=== PATIENT | male | born 1980 | race Two or more races ===

== ENCOUNTER 2018-05-03 19:35 | Emergency (ER) | payer MEDICAID ==
[~2018-05-03] VITALS: Ht 180.3 cm; Wt 111.1 kg
[2018-05-03 19:48] VITALS: BP 137/99
[2018-05-03] MEDS ORDERED: cefTRIAXone SOD 1,000 MG VL IM ONE (21:15)
[2018-05-03] MEDS ORDERED: DEXAMETHASONE SOD PHOS 10MG/1ML VIAL INJ IM ONE (21:15)
[2018-05-03] MEDS ORDERED: EPINEPHrine HCL 1 MG/1 ML AMP IM ONE (21:30)
== END 2018-05-03 21:55 | disposition home or self-care (01) ==
LOC: ER 19:51
DX: S00.86XA Insect bite (nonvenomous) of other part of head, initial encounter (principal); E11.9 Type 2 diabetes mellitus without complications; Z91.013 Allergy to seafood; W57.XXXA Bitten or stung by nonvenomous insect and other nonvenomous arthropods, initial encounter; Y93.89 Activity, other specified; Y92.098 Other place in other non-institutional residence as the place of occurrence of the external cause; Y99.8 Other external cause status
CPT/HCPCS: 96372; 99283; J0171; J0696; J1100

== ENCOUNTER 2019-08-10 08:40 | Emergency (ER) | payer MEDICAID ==
[~2019-08-10] VITALS: Ht 180.3 cm; Wt 111.1 kg
[2019-08-10 09:19] VITALS: BP 134/88
[2019-08-10] MEDS ORDERED: SODIUM CHLORIDE 0.9% 1,000 ML IV ONE (09:45)
[2019-08-10] MEDS ORDERED: KETOROLAC TROMETH 30 MG/ML 1ML VIAL IV ONE (09:45)
[2019-08-10 09:51] LABS: Urine Bacteria FEW /hpf (None Seen); Urine Blood 1+ /uL (Negative); Urine Specific Gravity 1.029 (1.001-1.035); Urine WBC 190 /hpf (0 - 3); Urine WBC Clumps PRESENT /hpf (None Seen)
[2019-08-10] MEDS ORDERED: cefTRIAXone 1GM/50ML D5W 50 ML IV ONE (10:15)
[2019-08-10] MEDS ORDERED: cefTRIAXone SOD 1,000 MG VL ONE (10:17)
[2019-08-10 10:21] LABS: Basophils # (auto) 0.1 10 ^3/uL (0-0.2); Basophils % (auto) 0.6 % (0.0-2.0); Eosinophils # (auto) 0.1 10 ^3/uL (0-0.8); Eosinophils % (auto) 1.2 % (0.0-7.0); Hematocrit 47.8 % (41.0-53.0); Hemoglobin 15.8 g/dL (13.5-17.5); Lymphocytes # (auto) 2.3 10 ^3/uL (0.4-5.4); Lymphocytes % (auto) 23.3 % (10.0-50.0); Mean Corpuscular Hemoglobin 29.2 pg (28.0-32.0); Mean Corpuscular Volume 88.4 fL (80.0-100.0); Monocytes # (auto) 0.6 10 ^3/uL (0-1.3); Monocytes % (auto) 5.8 % (0.0-12.0); Neutrophils # (auto) 6.9 10 ^3/uL (1.6-8.6); Neutrophils % (auto) 69.1 % (37.0-80.0); Platelet Count (auto) 261 10^3/uL (140-450); Red Blood Cells 5.41 10^6/uL (4.5-5.90); Red Cell Distribution Width 14.1 % (11.8-14.3)
[2019-08-10 10:36] LABS: Calcium 9.3 mg/dL (8.5-10.1); Potassium 3.9 mmol/L (3.5-5.1)
== END 2019-08-10 11:29 | disposition home or self-care (01) ==
LOC: ER 08:40
DX: N39.0 Urinary tract infection, site not specified (principal); M48.061 Spinal stenosis, lumbar region without neurogenic claudication; E11.9 Type 2 diabetes mellitus without complications; Z91.013 Allergy to seafood
CPT/HCPCS: 36415; 74176; 80048; 81001; 85025; 96365; 96375; 99284; J0696; J1885; J7030

== ENCOUNTER 2020-12-29 08:21 | Emergency (ER) | payer MEDICAID ==
[~2020-12-29] VITALS: Ht 180.3 cm; Wt 108.9 kg
[2020-12-29 12:53] VITALS: BP 122/77
== END 2020-12-29 13:23 | disposition home or self-care (01) ==
LOC: ER 08:21
DX: B30.9 Viral conjunctivitis, unspecified (principal); E11.9 Type 2 diabetes mellitus without complications; Z91.018 Allergy to other foods; Z91.013 Allergy to seafood

== ENCOUNTER 2021-04-27 08:49 | Emergency (ER) | payer MEDICAID ==
[~2021-04-27] VITALS: Ht 180.3 cm; Wt 108.9 kg
[2021-04-27 09:32] VITALS: BP 125/87
[2021-04-27] MEDS ORDERED: POLYSOL15 OP (09:49)
== END 2021-04-27 10:11 | disposition home or self-care (01) ==
LOC: ER 08:49
DX: H10.89 Other conjunctivitis (principal); B96.89 Other specified bacterial agents as the cause of diseases classified elsewhere; E11.9 Type 2 diabetes mellitus without complications; Z79.899 Other long term (current) drug therapy; Z91.013 Allergy to seafood; Z91.018 Allergy to other foods

== ENCOUNTER 2021-07-22 17:58 | Inpatient (IN) | payer MEDICAID ==
[~2021-07-22] VITALS: Ht 180.3 cm; Wt 115.3 kg
[~2021-07-22 17:58] MED LIST: POLYSOL15 OP
[2021-07-22 18:51] LABS: Basophils # (auto) 0 10 ^3/uL (0-0.2); Basophils % (auto) 0.4 % (0.0-2.0); Eosinophils # (auto) 0.1 10 ^3/uL (0-0.8); Eosinophils % (auto) 1.1 % (0.0-7.0); Hematocrit 41.4 % (41.0-53.0); Hemoglobin 14.2 g/dL (13.5-17.5); Lymphocytes # (auto) 0.4 10 ^3/uL (0.4-5.4); Lymphocytes % (auto) 4.5 % (10.0-50.0); Mean Corpuscular Hemoglobin 28.5 pg (28.0-32.0); Mean Corpuscular Hgb Conc. 34.2 g/dL (32.0-36.0); Mean Corpuscular Volume 83.3 fL (80.0-100.0); Monocytes # (auto) 0.7 10 ^3/uL (0-1.3); Monocytes % (auto) 8.6 % (0.0-12.0); Neutrophils % (auto) 85.4 % (37.0-80.0); Red Blood Cells 4.97 10^6/uL (4.5-5.90); Red Cell Distribution Width 13.9 % (11.8-14.3); White Blood Cell 8.2 10^3/uL (4.4-10.8)
[2021-07-22 19:05] LABS: Calcium 8.9 mg/dL (8.5-10.1); Magnesium 1.9 mg/dL (1.6-2.6)
[2021-07-22 19:08] LABS: Bilirubin, Total 0.5 mg/dL (0.2-1.0); Total Protein 7.7 g/dL (6.4-8.2)
[2021-07-22] MEDS ORDERED: NITROGLYCERIN 0.4 MG SL TAB SL ONE (20:00)
[2021-07-23] MEDS ORDERED: MORPHINE SULFATE INJ 2 MG/ml SYRG IV PRN ×2 (00:30)
[2021-07-23] MEDS ORDERED: ONDANSETRON HCL 4 MG/2 ML VIAL IV PRN (00:30)
[2021-07-23] MEDS ORDERED: NITROGLYCERIN 0.4 MG SL TAB SL PRN (00:30)
[2021-07-23 01:02] LABS: Urine Bacteria NONE SEEN /hpf (None Seen); Urine Blood Negative /uL (Negative); Urine Mucus FEW (None Seen); Urine Specific Gravity 1.032 (1.001-1.035); Urine WBC 7 /hpf (0 - 3)
[2021-07-23] MEDS ORDERED: METF-372 PO (06:48)
[2021-07-23] MEDS ORDERED: HYDR-4902 PO (06:48)
[2021-07-23] MEDS ORDERED: ALUM & MAG HYDROX-SIMETH LIQ(MAALOX) 30 ML PO ONE (08:00)
[2021-07-23] MEDS ORDERED: DEXTROSE (50%) 50ML SYRG IV PRN (08:00)
[2021-07-23 08:55] LABS: Cholesterol 185 mg/dL (< 200)
[2021-07-23 08:57] LABS: HDL Cholesterol 38 mg/dL (40-59); LDL Cholesterol 127 mg/dL (< 100); Triglycerides 150 mg/dL (< 150)
[2021-07-23] MEDS: PANTOPRAZOLE 40 MG/10 ML VIAL INJ IV SCH (11:12)
[2021-07-23] MEDS: ACCU-CHEK COMFORT CURVE STRIP VI SCH ×3 (13:10→22:00)
[2021-07-23] MEDS: HYDROcodone-ACET 7.5/325MG TAB PO PRN ×2 (13:16→19:48)
[2021-07-23] MEDS: InsuLIN REG 1unit/0.01ml Soln (100units/ml) SC SCH ×2 (13:17→16:43)
[2021-07-23 22:00] VITALS: BP 107/61
[2021-07-23] MEDS ORDERED: InsuLIN REG 1unit/0.01ml Soln (100units/ml) SC SCH (22:00)
[2021-07-24 05:00] VITALS: BP 117/55
[2021-07-24] MEDS: InsuLIN REG 1unit/0.01ml Soln (100units/ml) SC SCH ×2 (06:19→11:40)
[2021-07-24] MEDS: ACCU-CHEK COMFORT CURVE STRIP VI SCH ×2 (06:22→11:27)
[2021-07-24 08:00] VITALS: BP 116/69
[2021-07-24 09:00] VITALS: BP 116/69
[2021-07-24] MEDS: PANTOPRAZOLE 40 MG/10 ML VIAL INJ IV SCH (11:27)
[2021-07-24 13:00] VITALS: BP 106/59
[2021-07-24] MEDS ORDERED: AZIT500T66 PO (17:09)
== END 2021-07-24 13:42 | disposition left against medical advice (07) | DRG 203 ==
LOC: ER 17:58 → TELE 07-23 00:26 → TELE-CENTR 07-23 14:22
PROVIDERS: ADMIT Internal Medicine; ATTEND Internal Medicine
DX: R07.89 Other chest pain (principal); U07.1 COVID-19; E11.65 Type 2 diabetes mellitus with hyperglycemia; E66.9 Obesity, unspecified; J45.909 Unspecified asthma, uncomplicated; K21.9 Gastro-esophageal reflux disease without esophagitis; Z91.013 Allergy to seafood; Z72.0 Tobacco use; Z91.018 Allergy to other foods; Z68.35 Body mass index [BMI] 35.0-35.9, adult; Z53.29 Procedure and treatment not carried out because of patient's decision for other reasons
CPT/HCPCS: 36415; 71045; 80053; 80061; 81001; 82962; 83036; 83690; 83735; 83880; 84484; 85025; 93005; 93306; 96374; C9113; G0378; J1815